=== PATIENT | female | born 1995 | race Caucasian/White ===

== ENCOUNTER → 2020-02-02 | Outpatient (CLI) | payer OTHER | LOC: M.NUC 07:06 | PROVIDERS: ATTEND Nurse Practitioner Adult Health | DX: R10.9 Unspecified abdominal pain (principal) ==

== ENCOUNTER 2021-07-23 17:26 | Emergency (ER) | payer OTHER ==
[~2021-07-23] VITALS: Ht 167.6 cm; Wt 108.0 kg
[2021-07-23] MEDS ORDERED: LEXAPRO20 MG PO (17:39)
[2021-07-23 17:59] LABS: INFLUENZA A ANTIGEN Positive (Negative); INFLUENZA B ANTIGEN Negative (Negative)
[2021-07-23] MEDS ORDERED: TAMIFLU75 MG PO (18:37)
[2021-07-23] MEDS ORDERED: MEDROLDOSEPACK PO (18:37)
[2021-07-23] MEDS ORDERED: PROAIR HFA8.5 GM INH (18:37)
[2021-07-23 18:48] VITALS: BP 128/71
== END 2021-07-23 18:49 | disposition home or self-care (01) ==
LOC: M.ERS 17:26
PROVIDERS: Nurse Practitioner Family
DX: J11.1 Influenza due to unidentified influenza virus with other respiratory manifestations (principal); Z20.822 Contact with and (suspected) exposure to COVID-19; J45.909 Unspecified asthma, uncomplicated; F17.210 Nicotine dependence, cigarettes, uncomplicated; Z88.1 Allergy status to other antibiotic agents; Z88.8 Allergy status to other drugs, medicaments and biological substances; Z79.899 Other long term (current) drug therapy; Z98.890 Other specified postprocedural states